=== PATIENT | female | born 1995 | race Hispanic/Latino ===

== ENCOUNTER 2022-07-04 01:57 | Emergency (ER) | payer MEDICAID ==
[2022-07-04] MEDS ORDERED: Proparacaine 0.5% Opth 15 ML BOT ONE (04:05)
[2022-07-04] MEDS ORDERED: Fluorescein Opthalmic Strip ONE (04:05)
[2022-07-04] MEDS ORDERED: Ketorolac Tromethamine 30 MG/ML VIAL ONE (04:29)
== END 2022-07-04 04:40 | disposition home or self-care (01) ==
LOC: ERS 01:57
DX: B02.9 Zoster without complications (principal)
CPT/HCPCS: 96372; 99283; J1885